=== PATIENT | female | born 2000 | race Caucasian/White ===

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

== ENCOUNTER 2020-02-20 09:20 | Emergency (ER) | payer MEDICAID, OTHER ==
[~2020-02-20] VITALS: Ht 167.7 cm; Wt 88.2 kg
[~2020-02-20 09:20] MED LIST changes: +ACHD5005 PO; +Benzocaine/Menthol TP; +DOCU100C37 PO; +FERR325T18 PO; +IBUP-844 PO
--- NOTE | 2020-02-20 09:25 | NUR ---
Patient ambulatory to ED 2 for c/o urinary sx x 1 week. Pt at that time went to her local [facility] ER that was very busy so she did not stay to be seen. Pt continues with sx and worsening. Pt is in [facility] visiting and no local physician. Pt then reports yesterday she had an upper epigastric area pain that went away. Pt states she was worked up and it may have been stress induced. No vaginal discharge or bleeding, spotting, or cramping. Pt follows with her OB/Gynecological care of [place] and has had a normal ultrasound this .
--- NOTE | 2020-02-20 09:26 | ED GU-Female ---
General Stated Complaint: ABD/URINARY PAIN Source: patient Exam Limitations: no limitations History of Present Illness Date Seen by Provider: Feb 20, 2020 Time Seen by Provider: 09:32 Initial Comments 19-year-old female presents with urinary symptoms 1 week. Patient reports she is with a last menstrual period 10/30/2019 with a due date of 08/05/2020. She would be a partially 16 weeks 1 day . She has no abnormal discharge, or vaginal bleeding. Patient reports that she was try to be seen a few days ago that the hospital ER she went to was busy so she did not stay and be seen. Patient denies any fevers or chills. She has no lower abdominal cramping. Allergies and Home Medications Allergies Coded Allergies: Penicillins (Verified Allergy, Unknown, 03/06/18) Home Medications Cephalexin 500 Mg Capsule, 500 MG PO TID Prescribed by: TAMARA MENEZES on 02/20/20 1033 Docusate Sodium 100 Mg Capsule, 100 MG PO BID PRN for CONSTIPATION-1ST LINE Prescribed by: ANNETTE JACOBS on 03/07/18 1142 Ferrous Sulfate 325 Mg Tablet, 325 MG PO DAILY Prescribed by: ANNETTE JACOBS on 03/07/18 1142 Hydrocodone Bit/Acetaminophen 1 Tab Tab, 1-2 TAB PO Q6H PRN for PAIN-MODERATE Prescribed by: ANNETTE JACOBS on 03/07/18 1142 Ibuprofen 600 Mg Tablet, 600 MG PO Q6H Prescribed by: ANNETTE JACOBS on 03/07/18 1142 Nystatin/Triamcinolone 15 Gm Cr, 15 GM TP DAILY, (Reported) [Benzocaine/Menthol] 56 ML AEROSOL, 56 ML TP UD PRN for PAIN- SEE INSTRUCTIONS EXTERNAL USE ONLY Prescribed by: ANNETTE JACOBS on 03/07/18 1142 Patient Home Medication List Home Medication List Reviewed: Yes Review of Systems Review of Systems Constitutional: No chills, No fever Respiratory: No cough, No short of breath Gastrointestinal: No diarrhea, No nausea, No vomiting Genitourinary: see HPI, burning Musculoskeletal: no symptoms reported Skin: no symptoms reported Psychiatric/Neurological: No Symptoms Reported Endocrine: No Symptoms Reported Hematologic/Lymphatic: No Symptoms Reported Past Egrsppc-Uffbsg-Amzlew Hx Past Med/Social Hx: Reviewed Nursing Past Med/Soc Hx Patient Social History Recent Foreign Travel: No Contact w/Someone Who Travel: No Recent Hopitalizations: No Immunizations Up To Date Date of Influenza Vaccine: Dec 25, 2017 Seasonal Allergies Seasonal Allergies: No Past Medical History Surgeries: No Respiratory: No Cardiac: No Neurological: No Genitourinary: No Gastrointestinal: No Musculoskeletal: No Endocrine: No HEENT: Yes (WEARS GLASSES) Cancer: No Psychosocial: No Integumentary: No Blood Disorders: No Adverse Reaction/Blood Tranf: No Family Medical History Diabetes mellitus (FATHER'S SIDE OF FAMILY) FH: cancer (GM) FH: stroke (GM) No Family History of: CAN Physical Exam Vital Signs Vital Signs - First Documented 02/20/20 09:25 Temp 36.7 Pulse 100 Resp 20 B/P (MAP) 132/77 (95) Pulse Ox 100 O2 Delivery Room Air Capillary Refill : Height, Weight, BMI Height: 5'6.00" Weight: 195lbs. 0.0oz. [id number]; 31.5 BMI Method: General Appearance: WD/WN, no apparent distress HEENT: PERRL/EOMI Neck: full range of motion, supple Cardiovascular: normal peripheral pulses, regular rate, rhythm Respiratory: lungs clear, normal breath sounds Gastrointestinal: non tender, soft Extremities: normal range of motion, non-tender, normal inspection Neurologic/Psychiatric: alert, normal mood/affect, oriented x 3 Skin: normal color, warm/dry Progress/Results/Core Measures Suspected Sepsis SIRS Temperature: Pulse: Respiratory Rate: Blood Pressure / Mean: Results/Orders Lab Results Laboratory Tests Test 02/20/20 10:00 Range/Units Urine Color DARK YELLOW Urine Clarity CLOUDY H Urine pH 7.0 5-9 Urine Specific [place] 1.020 1.016-1.022 Urine Protein 1+ H NEGATIVE Urine Glucose (UA) NEGATIVE NEGATIVE Urine Ketones TRACE H NEGATIVE Urine Nitrite NEGATIVE NEGATIVE Urine Bilirubin 1+ H NEGATIVE Urine Urobilinogen 1.0 < = 1.0 MG/DL Urine Leukocyte Esterase 2+ H NEGATIVE Urine RBC (Auto) NEGATIVE NEGATIVE Urine RBC NONE /HPF Urine WBC 10-25 H /HPF Urine Squamous Epithelial Cells TNTC H /HPF Urine Crystals NONE /LPF Urine Bacteria MODERATE H /HPF Urine Casts NONE /LPF Urine Mucus LARGE H /LPF Urine Culture Indicated YES My Orders Orders - TAMARA MENEZES DO Ua Culture If Indicated (02/20/20 09:42) Urine Culture (02/20/20 10:00) Ceftriaxone For Im Use (Rocephin For Im (02/20/20 10:30) Lidocaine 1% Inj 20 Ml (Xylocaine 1% Inj (02/20/20 10:30) Vital Signs/I&O 02/20/20 09:25 Temp 36.7 Pulse 100 Resp 20 B/P (MAP) 132/77 (95) Pulse Ox 100 O2 Delivery Room Air Capillary Refill : Progress Note : Time: 10:35 Progress Note Patient with acute cystitis. I will treat her with a shot or Rocephin today due to being in a holiday and unsure of her pharmacies open. I sent her a prescription for 7 days of Keflex. She should follow with her primary care provider next week to ensure that a urinary tract infection resolves Departure Impression Primary Impression: Urinary tract infection Qualified Codes: N30.01 - Acute cystitis with hematuria Additional Impression: with 16 completed weeks gestation Disposition: HOME, SELF-CARE Condition: Stable Departure-Patient Inst. Referrals: ANNETTE JACOBS DO (PCP/Family) Primary Care Physician Patient Instructions: Urinary Tract Infection, Adult (DC), Care, Taking Qeyg-kut-Tvlyzpr Medicines During Add. Discharge Instructions: Follow-up with your OB or primary care provider next week for recheck in today symptoms Scripts Cephalexin (Keflex) 500 Mg Capsule 500 MG PO TID, #21 CAP Prov: TAMARA MENEZES DO 02/20/20 TAMARA MENEZES DO Feb 20, 2020 09:26
--- NOTE | 2020-02-20 09:55 | NUR ---
Lab requested fresh urine sample with further pericare performed to decrease epithelial cells that are noted in abundance in the urine.
--- NOTE | 2020-02-20 10:00 | NUR ---
Pt collected new urine sample for the lab analysis.
[2020-02-20 10:20] LABS: CLARITY,URINE CLOUDY; COLOR,URINE DARK YELLOW; GLUCOSE, URINE (UA) NEGATIVE (NEGATIVE); PROTEIN,URINE 1+ (NEGATIVE)
[2020-02-20 10:21] LABS: BACTERIA,URINE MODERATE /HPF; BILIRUBIN,URINE 1+ (NEGATIVE); KETONES,URINE TRACE (NEGATIVE); LEUKOCYTE ESTERASE ,URINE 2+ (NEGATIVE); NITRITE,URINE NEGATIVE (NEGATIVE)
[2020-02-20 10:22] LABS: SQUAMOUS EPITHELIAL CELL,UR TNTC /HPF
[2020-02-20] MEDS ORDERED: cefTRIAXone 1,000 MG/2.86 ml vial (IM ONLY) IM ONE (10:30)
[2020-02-20] MEDS ORDERED: LIDOCAINE 1% INJ 20 ML 20 ML VIAL INJ ONE (10:30)
[2020-02-20] MEDS ORDERED: CEPH-507 PO (10:33)
[2020-02-20 11:00] VITALS: BP 128/73
--- NOTE | 2020-02-20 11:00 | NUR ---
Attempts at FHT not heard clearly but RN was witness to Dr performing a non-diagnostic US scan of abd to reveal an IUP with heart beating. Patient was advised of the findings but further care recommended
== END 2020-02-20 11:00 | disposition home or self-care (01) ==
LOC: EDUNIT# 09:20 → ER FS 09:22
DX: O26.892 Other specified pregnancy related conditions, second trimester (principal); N39.0 Urinary tract infection, site not specified; Z3A.00 Weeks of gestation of pregnancy not specified; Z88.0 Allergy status to penicillin; Z80.9 Family history of malignant neoplasm, unspecified; Z83.3 Family history of diabetes mellitus
CPT/HCPCS: 81000; 87088; 99284